=== PATIENT | female | born 1960 | race Caucasian/White ===

== ENCOUNTER 2017-05-10 11:43 | Outpatient (CLI) | payer OTHER ==
[2015-09-18 13:10] VITALS: BP 144/71
== END 2017-05-10 11:44 ==
LOC: OUT 11:43
PROVIDERS: ATTEND Colon & Rectal Surgery
DX: Z12.11 Encounter for screening for malignant neoplasm of colon (principal)
CPT/HCPCS: 99213

== ENCOUNTER 2017-05-31 07:58 | Day surgery (SDC) | payer OTHER ==
[2015-09-18 13:10] VITALS: BP 144/71
[2017-05-31] MEDS ORDERED: PROPOFOL 500 MG/50 ML VIAL IV ONE (08:00)
[2017-05-31] MEDS ORDERED: LACTATED RINGERS 1,000 ML IV.SOLN IV ONE (08:00)
[2017-05-31] MEDS ORDERED: SALINE FLUSH 10 ML DISP.SYRIN IVF ONE (08:00)
[2017-05-31] MEDS ORDERED: LIDOCAINE HCL/PF 2% 100 MG/5 ML VIAL IJ ONE (08:00)
--- NOTE | 2017-05-31 15:53 | Operative Note ---
SURGEON: Dom Rene MD ANESTHESIA: MAC anesthesia. ESTIMATED BLOOD LOSS: None. COMPLICATIONS: None. FINDINGS: Normal colonoscopy. PREOPERATIVE DIAGNOSIS: Screening colonoscopy. POSTOPERATIVE DIAGNOSIS: Normal colonoscopy. PROCEDURE PERFORMED: Colonoscopy to cecum. INDICATIONS FOR PROCEDURE: This is a 56-year-old woman who presents for a screening colonoscopy. DESCRIPTION OF PROCEDURE: Patient was brought to the endoscopy suite and placed in the left lateral decubitus position. MAC anesthesia was administered by the highway painter. A rectal examination was performed which was normal. The colonoscope was inserted and passed to the cecum. The appendiceal orifice and ileocecal valve were identified. The colonoscope was slowly retracted being careful to inspect all connell. There were no polyps or other lesions seen. She did have quite a tortuous colon. The colonoscope was removed. The patient tolerated the procedure well. DISPOSITION: I recommend a repeat colonoscopy in 10 years. cc: Dr. Keerthi OLIVAS
== END 2017-05-31 08:00 ==
LOC: OPSURG 07:58
PROVIDERS: ATTEND Colon & Rectal Surgery
DX: Z12.11 Encounter for screening for malignant neoplasm of colon (principal)
CPT/HCPCS: J2001; J2704; J7120; 45378; S1016

== ENCOUNTER 2017-06-14 07:27 | Day surgery (SDC) | payer OTHER ==
[2015-09-18 13:10] VITALS: BP 144/71
[2017-06-14] MEDS ORDERED: LACTATED RINGERS 1,000 ML IV.SOLN IV ONE (08:00)
[2017-06-14] MEDS ORDERED: LIDOCAINE HCL/PF 2% 100 MG/5 ML VIAL IJ ONE (08:00)
[2017-06-14] MEDS ORDERED: PROPOFOL 200 MG/20 ML VIAL IV ONE (08:00)
[2017-06-14] MEDS ORDERED: SALINE FLUSH 10 ML DISP.SYRIN IVF ONE (08:00)
--- NOTE | 2017-06-15 09:49 | Operative Note ---
SURGEON: Dom Rene MD ANESTHESIA: MAC anesthesia. ESTIMATED BLOOD LOSS: None. COMPLICATIONS: None. FINDINGS: Normal exam to the second portion of the duodenum. PREOPERATIVE DIAGNOSES: 1. Nausea. 2. Abdominal pain. POSTOPERATIVE DIAGNOSIS: Normal esophagogastroduodenoscopy (EGD). PROCEDURE PERFORMED: Esophagogastroduodenoscopy (EGD). INDICATIONS FOR PROCEDURE: This is a 56-year-old woman with nausea and abdominal pain. DESCRIPTION OF PROCEDURE: Patient was brought to the endoscopy suite and placed in the left lateral decubitus position. MAC anesthesia was administered by the lead shop operator. The endoscope was inserted and passed easily to the second portion of the duodenum. The duodenum was normal. The entire stomach was normal as was the fundus. The GE junction was normal. The esophagus was normal. There was no evidence of any inflammation, ulcer, or tumor. The endoscope was removed. The patient tolerated the procedure well. DISPOSITION: I recommend she follow up with her primary care physician. cc: Dr. Keerthi OLIVAS
== END 2017-06-14 07:30 ==
LOC: OPSURG 07:27
PROVIDERS: ATTEND Colon & Rectal Surgery
DX: R11.0 Nausea (principal); R10.84 Generalized abdominal pain
CPT/HCPCS: J2001; J2704; J7120; 43235; S1016

== ENCOUNTER 2017-07-16 09:53 | Outpatient (CLI) | payer OTHER ==
[2015-09-18 13:10] VITALS: BP 144/71
[2017-07-16 10:16] LABS: BASOPHILS % 0.8 (0.0-1.5); EOSINOPHILS % 3.6 % (0.0-6.8); MEAN CORPUSCULAR HEMOGLOBIN 28.3 pg (28.0-34.0); MEAN CORPUSCULAR VOLUME 86.5 fl (80.0-100.0); MONOCYTES % 4.7 % (0.0-11.0); NEUTROPHILS # 2.9 # k/uL (1.4-7.7)
[2017-07-16 11:12] LABS: eGFR (African) > 60; eGFR (Non-African) > 60
== END 2017-07-16 10:00 ==
LOC: LAB 09:53
PROVIDERS: ATTEND Family Medicine
DX: R11.0 Nausea (principal)
CPT/HCPCS: 36415; 80053; 84443; 85025

== ENCOUNTER 2017-09-12 14:45 | Outpatient (CLI) | payer OTHER ==
[2015-09-18 13:10] VITALS: BP 144/71
== END 2017-09-12 14:47 ==
LOC: LABRHC 14:45
PROVIDERS: ATTEND Family Medicine
DX: R30.0 Dysuria (principal)
CPT/HCPCS: 87086